=== PATIENT | male | born 1940 | race American Indian/Alaskan Native ===

== ENCOUNTER 2020-10-20 19:08 | Emergency (ER) | payer MEDICARE ==
[2020-10-20] MEDS ORDERED: ONDANSETRON 4 MG/2 ML INJ IV PRN (19:20)
[2020-10-20] MEDS ORDERED: ACETAMINOPHEN 325 MG TAB PO PRN (19:20)
[2020-10-20] MEDS ORDERED: oxyCODONE /ACETAMINOPHEN 5-325MG TAB PO PRN (19:20)
[2020-10-20] MEDS ORDERED: SODIUM CHLORIDE 0.9% 1000 ML 1,000 ML IV SCH (19:30)
[2020-10-20] MEDS ORDERED: LACTATED RINGERS 1000 ML IV SOLN IV ONE (19:30)
[2020-10-20] MEDS ORDERED: SODIUM CHLORIDE 0.9% 1000 ML IV SOLN IV ONE (19:32)
[2020-10-20] MEDS ORDERED: ENOXAPARIN 30 MG/0.3 ML INJ SUB-Q SCH (20:00)
[2020-10-20 20:14] LABS: Basophils % (Auto) 0.1 % (0.0-1.8); Hematocrit 34.7 % (35.5-45.6); Hemoglobin 11.7 gm/dl (11.8-15.2); Lymphocytes # (Auto) 0.4 K/mm3 (1.2-5.4); Lymphocytes % (Auto) 5.8 % (13.4-35.0); Mean Corpuscular HGB Conc 34 % (32-34); Mean Corpuscular Volume 83 fl (84-94); Monocytes # (Auto) 0.6 K/mm3 (0.0-0.8); Monocytes % (Auto) 8.4 % (0.0-7.3); Platelet Count 377 K/mm3 (140-440); Red Cell Distribution Width 16.5 % (13.2-15.2)
--- NOTE | 2020-10-20 20:14 | XRay Report ---
CHEST 1 VIEW 10/20/2020 7:32 PM INDICATION / CLINICAL INFORMATION: sob, hypoxia. COMPARISON: None available. FINDINGS: SUPPORT DEVICES: None. HEART / MEDIASTINUM: No significant abnormality. LUNGS / PLEURA: There is a [id number] right apical pneumothorax. There are patchy pulmonary op acities in the right mid and lower lung and left mid and lower lung. ADDITIONAL FINDINGS: No significant additional findings. IMPRESSION: 1. Small to moderate right pneumothorax. 2. Patchy bibasilar pulmonary opacities. Findings discussed with Dr. Del Valle at 7:10 PM on 10/20/2020. Signer Name: Juma Woodall MD Signed: 10/20/2020 8:10 PM Workstation Name: [id number]
--- NOTE | 2020-10-20 20:22 | Emergency Department Report ---
ED Shortness of Breath [facility] - General Chief Complaint: Dyspnea/Respdistress Stated Complaint: JOSE Time Seen by Provider: 10/20/20 19:27 Source: patient Mode of arrival: Wheelchair Limitations: Physical Limitation - History of Present Illness Initial Comments: 79-year-old male presents to the hospital with shortness of breath. Patient is [place] and very difficult to understand. He apparently was sent for direct admission by Dr. Landrum and was accepted by Dr. Minaya for admission. After the ED presentation he was found to be hypoxic and hypotensive therefore he came through the ED for evaluation. History of present illness obtained from Dr. Landrum. Patient lives here but apparently goes home periodically to [place]. He actually landed here from [facility] at this morning. While hematuria patient developed shortness of breath and had a CAT scan showing a mass. He had a biopsy showing pulmonary fibrosis. Patient developed progressive shortness of breath and pleural effusion during evaluation as well. Patient had a negative Covid test while in [place]. Patient has been progressively losing weight and had a chest x-ray in the doctor's office and was noted to be hypoxic and hypotensive and therefore sent to the hospital for admission. Initial triage vital signs showed BP of 82/52, heart rate of 111, saturation of 75% on room air, and respiratory rate of 20. - Related Data Allergies Allergy/AdvReac Type Severity Reaction Status Date / Time No Known Allergies Allergy Unverified 03/24/14 11:50 ED Review of Systems ROS: Stated complaint: JOSE Other details as noted in HPI ED Past Medical Hx - Past Medical History Previous Medical History?: Yes Hx Hypertension: Yes Additional medical history: "Lung dx" - Surgical History Past Surgical History?: Yes Additional Surgical History: Lung biopsy - Social History Smoking Status: Never Smoker Substance Use Type: None ED Physical Exam - General Limitations: Physical Limitation - Other Other exam information: General: No acute distress Head: Atraumatic Eyes: normal appearance ENT: Moist mucous membranes Neck: Normal appearance, no midline tenderness Chest: Diminished right-sided breath sounds, no tachypnea accessory muscle use CV: Regular rate and rhythm Abdomen: Soft, normal bowel sounds, nontender, nondistended, no rebound or guarding Back: Normal inspection Extremity: Normal inspection, full range of motion Neuro: Alert O x 3, no facial asymmetry, speech clear, no gross motor sensory deficit Psych: Appropriate behavior Skin: No rash ED Course Vital Signs 10/20/20 10/20/20 10/20/20 19:19 20:29 20:30 Temperature 97.5 F L Pulse Rate 111 H 104 H 105 H Respiratory 20 19 18 Rate Blood Pressure 82/52 147/70 O2 Sat by Pulse 75 L 100 100 Oximetry 10/20/20 10/20/20 10/20/20 20:45 21:00 21:15 Temperature Pulse Rate 103 H 104 H 102 H Respiratory 25 H 16 16 Rate Blood Pressure 143/71 143/71 126/67 O2 Sat by Pulse 100 100 100 Oximetry - Reevaluation(s) Reevaluation #1: 10/20/20 Patient placed on 3 L and satting 100% without signs of tachypnea or respiratory distress 10/21/20 00:30 I attempted to call Daughter Kandice's number to provide an update regarding diagnosis and plan for transfer but no answer. - Consultations Consultation #1: 10/20/20 23:17 Dr Carver provided an update regarding CT findings and need for pulmonology co nsult and possible transfer. He states that he has discussed case with Dr. Shah and therefore I will consult Dr. Shah regarding appropriate disposition i.e. admission here or need for transfer for treatment of loculated hydropneumothorax. 10/20/20 23:[address] Shah who confirms that patient will need to be at a facility to have CT surgery to manage his hydropneumothorax. 10/20/20 23:58 [facility] initially called and the were low on beds so We called [facility], [facility], and [facility] and all three hospitals were at capacity case d/w [facility] transfer service, awaiting call back from ct surgeon. 10/21/20 00:26 I received callback from cardiothoracic surgery Dr. Donahue. He is accepted p atient for transfer to [facility] ED Medical Decision Making - Lab Data Result diagrams: 10/20/20 19:42 10/20/20 19:42 Lab Results 10/20/20 10/20/20 10/20/20 Range/Units 19:42 19:42 19:42 WBC 7.3 (4.5-11.0) K/mm3 RBC 4.20 (3.65-5.03) M/mm3 Hgb 11.7 L (11.8-15.2) gm/dl Hct 34.7 L (35.5-45.6) % MCV 83 L (84-94) fl MCH 28 (28-32) pg MCHC 34 (32-34) % RDW 16.5 H (13.2-15.2) % Plt Count 377 (140-440) K/mm3 Lymph % (Auto) 5.8 L (13.4-35.0) % [place] % (Auto) 8.4 H (0.0-7.3) % Eos % (Auto) 0.0 (0.0-4.3) % Baso % (Auto) 0.1 (0.0-1.8) % Lymph # (Auto) 0.4 L (1.2-5.4) K/mm3 [place] # (Auto) 0.6 (0.0-0.8) K/mm3 Eos # (Auto) 0.0 (0.0-0.4) K/mm3 Baso # (Auto) 0.0 (0.0-0.1) K/mm3 Seg Neutrophils % 85.7 H (40.0-70.0) % Seg Neutrophils # 6.3 (1.8-7.7) K/mm3 PT (12.2-14.9) Sec. INR (0.87-1.13) APTT (24.2-36.6) Sec. D-Dimer (0-234) ng/mlDDU Sodium 128 L (137-145) mmol/L Potassium 4.5 (3.6-5.0) mmol/L Chloride 83.7 L (98-107) mmol/L Carbon Dioxide 29 (22-30) mmol/L Anion Gap 20 mmol/L BUN 31 H (9-20) mg/dL Creatinine 1.7 H (0.8-1.3) mg/dL Estimated GFR 47 ml/min BUN/Creatinine Ratio 18 % Glucose 130 H (75-100) mg/dL Lactic Acid 2.10 H* (0.7-2.0) mmol/L Calcium 10.1 (8.4-10.2) mg/dL Ferritin (30.0-300.0) ng/mL Total Bilirubin 0.50 (0.1-1.2) mg/dL AST 68 H (5-40) units/L ALT 47 (7-56) units/L Alkaline Phosphatase 102 (35-129) units/L Lactate Dehydrogenase (91-180) units/L C-Reactive Protein (0.00-1.30) mg/dL Total Protein 7.8 (6.3-8.2) g/dL Albumin 3.6 L (3.9-5) g/dL Albumin/Globulin Ratio 0.9 % 10/20/20 10/20/20 10/20/20 Range/Units 19:42 19:42 19:42 WBC (4.5-11.0) K/mm3 RBC (3.65-5.03) M/mm3 Hgb (11.8-15.2) gm/dl Hct (35.5-45.6) % MCV (84-94) fl MCH (28-32) pg MCHC (32-34) % RDW (13.2-15.2) % Plt Count (140-440) K/mm3 Lymph % (Auto) (13.4-35.0) % [place] % (Auto) (0.0-7.3) % Eos % (Auto) (0.0-4.3) % Baso % (Auto) (0.0-1.8) % Lymph # (Auto) (1.2-5.4) K/mm3 [place] # (Auto) (0.0-0.8) K/mm3 Eos # (Auto) (0.0-0.4) K/mm3 Baso # (Auto) (0.0-0.1) K/mm3 Seg Neutrophils % (40.0-70.0) % Seg Neutrophils # (1.8-7.7) K/mm3 PT (12.2-14.9) Sec. INR (0.87-1.13) APTT (24.2-36.6) Sec. D-Dimer 8356.23 H (0-234) ng/mlDDU Sodium (137-145) mmol/L Potassium (3.6-5.0) mmol/L Chloride (98-107) mmol/L Carbon Dioxide (22-30) mmol/L Anion Gap mmol/L BUN (9-20) mg/dL Creatinine (0.8-1.3) mg/dL Estimated GFR ml/min BUN/Creatinine Ratio % Glucose 127 H (75-100) mg/dL Lactic Acid (0.7-2.0) mmol/L Calcium (8.4-10.2) mg/dL Ferritin 3799.0 H (30.0-300.0) ng/mL Total Bilirubin (0.1-1.2) mg/dL AST (5-40) units/L ALT (7-56) units/L Alkaline Phosphatase (35-129) units/L Lactate Dehydrogenase 359 H (91-180) units/L C-Reactive Protein 4.20 H (0.00-1.30) mg/dL Total Protein (6.3-8.2) g/dL Albumin (3.9-5) g/dL Albumin/Globulin Ratio % 10/20/20 10/20/20 Range/Units 19:42 22:31 WBC (4.5-11.0) K/mm3 RBC (3.65-5.03) M/mm3 Hgb (11.8-15.2) gm/dl Hct (35.5-45.6) % MCV (84-94) fl MCH (28-32) pg MCHC (32-34) % RDW (13.2-15.2) % Plt Count (140-440) K/mm3 Lymph % (Auto) (13.4-35.0) % [place] % (Auto) (0.0-7.3) % Eos % (Auto) (0.0-4.3) % Baso % (Auto) (0.0-1.8) % Lymph # (Auto) (1.2-5.4) K/mm3 [place] # (Auto) (0.0-0.8) K/mm3 Eos # (Auto) (0.0-0.4) K/mm3 Baso # (Auto) (0.0-0.1) K/mm3 Seg Neutrophils % (40.0-70.0) % Seg Neutrophils # (1.8-7.7) K/mm3 PT 13.2 (12.2-14.9) Sec. INR 1.01 (0.87-1.13) APTT 35.8 (24.2-36.6) Sec. D-Dimer (0-234) ng/mlDDU Sodium (137-145) mmol/L Potassium (3.6-5.0) mmol/L Chloride (98-107) mmol/L Carbon Dioxide (22-30) mmol/L Anion Gap mmol/L BUN (9-20) mg/dL Creatinine (0.8-1.3) mg/dL Estimated GFR ml/min BUN/Creatinine Ratio % Glucose (75-100) mg/dL Lactic Acid 1.40 (0.7-2.0) mmol/L Calcium (8.4-10.2) mg/dL Ferritin (30.0-300.0) ng/mL Total Bilirubin (0.1-1.2) mg/dL AST (5-40) units/L ALT (7-56) units/L Alkaline Phosphatase (35-129) units/L Lactate Dehydrogenase (91-180) units/L C-Reactive Protein (0.00-1.30) mg/dL Total Protein (6.3-8.2) g/dL Albumin (3.9-5) g/dL Albumin/Globulin Ratio % - EKG Data -: EKG Interpreted by Wi EKG shows normal: sinus rhythm Rate: normal - Radiology Data Radiology results: report reviewed CTA CHEST WITH CONTRAST INDICATION / CLINICAL INFORMATION: P.E. PROTOCOL! Elevated D-dimer, Pneumothorax, S/P biopsy. TECHNIQUE: Axial CT images were obtained through the chest after injection of 100 mL Omnipaque 350 IV contrast. 3 plane MIP and/or 3D reconstructions were produced. All CT scans at this location are performed using CT dose reduction for ALARA by means of automated exposure control. COMPARISON: No prior CT. Chest radiograph earlier on 10/20/20 FINDINGS: PULMONARY ARTERIES: Small to moderate segmental pulmonary emboli in the left lower lobe. THORACIC AORTA: Mild atherosclerotic calcification without acute abnormality. HEART: No significant abnormality. CORONARY ARTERY CALCIFICATION: Mild. MEDIASTINUM / HARRY: No significant abnormality. PLEURA: Moderate size loculated anterior right hydropneumothorax. Small left pleural effusion versus pleural thickening. LUNGS: Reticular pattern of interstitial lung disease. No honeycombing. ADDITIONAL FINDINGS: Bronchial wall thickening throughout the right lung especially involving the right upper lobe bronchus and bronchus intermedius. UPPER ABDOMEN: No acute findings. SKELETAL STRUCTURES: No significant osseous abnormality. IMPRESSION: 1. Small moderate segmental left lower lobe pulmonary emboli. 2. Moderate-sized loculated anterior right hydropneumothorax as seen on radiograph. 3. Right lung bronchial wall thickening. 4. Reticular pattern of interstitial lung disease without honeycombing. CHEST 1 VIEW 10/20/2020 7:32 PM INDICATION / CLINICAL INFORMATION: sob, hypoxia. COMPARISON: None available. FINDINGS: SUPPORT DEVICES: None. HEART / MEDIASTINUM: No significant abnormality. LUNGS / PLEURA: There is a [id number] right apical pneumothorax. There are patchy pulmonary opacities in the right mid and lower lung and left mid and lower lung. ADDITIONAL FINDINGS: No significant additional findings. IMPRESSION: 1. Small to moderate right pneumothorax. 2. Patchy bibasilar pulmonary opacities. - Medical Decision Making 79-year-old male presents here with hypoxia and shortness of breath after recent return from [facility] this a.m. Patient received pulmonology work-up while in [facility] and follow-up with his PMD here upon arrival to [place]. Patient was noted to have abnormal chest x-ray with hypoxia hypotension at the doctor's office therefore sent to the hospital with plan to direct admit. Patient was too unstable for direct admission and required ED stabilization and work-up. ED work-up revealed a loculated right-sided anterior hydropneumothorax and pulmonary emboli. Case discussed with Dr. Land[facility]. Case discussed with his consulting watcher lookout tower Dr. Teixeira/Dr. Shah and patient will require transfer to the hospital that has CT surgery. In the ED patient treated with normal saline, supplemental oxygen with adequate oxygenation at 3 L nasal cannula, vancomycin and cefepime for hospital-acquired pneumonia (after reviewing initial chest x-ray), and heparin drip initiated for pulmonary emboli as opposed to Lovenox in case patient requires surgical intervention Given patient is hypoxic a recent travel, Covid test was ordered as well as IV d examethasone until Covid test can be obtained. Patient also had blood cultures drawn as part of his septic work-up. Initial mild increased lactic acid improved with IV hydration and patient initial hypotension remained improved and stable after 30 mm KG bolus of normal saline Critical Care Time: Yes Critical care time in (mins) excluding proc time.: 40 Critical care attestation.: If time is entered above; I have spent that time in minutes in the direct care of this critically ill patient, excluding procedure time. ED Disposition Clinical Impression: Hypoxia, Hydropneumothorax, Pulmonary emboli, History of lung biopsy Disposition: DC/TX-70 ANOTHER TYPE [facility] Is pt being admited?: No Condition: Stable Time of Disposition: 00:32 (Dr. Donahue CT surgeon [facility])
[2020-10-20 20:34] LABS: Albumin 3.6 g/dL (3.9-5); Calcium 10.1 mg/dL (8.4-10.2)
[2020-10-20 20:36] LABS: C-Reactive Protein 4.2 mg/dL (0.00-1.30)
[2020-10-20] MEDS ORDERED: VANCOMYCIN 1,000 MG in SODIUM CHLORIDE 0.9% 500 ML 500 ML IV ONE (20:46)
[2020-10-20] MEDS ORDERED: CEFEPIME/NS 2 GM/100 ML 2 GM/100 ML BAG IV ONE (20:46)
[2020-10-20] MEDS ORDERED: VANCOMYCIN PHARMACY TO DOSE IV SCH (21:00)
[2020-10-20] MEDS ORDERED: dexAMETHasone 4 MG/ML VIAL IV ONE (21:02)
[2020-10-20] MEDS ORDERED: VANCOMYCIN/NS 1 GM/250 ML 1 GM/250 ML BAG IV ONE (22:00)
--- NOTE | 2020-10-20 23:01 | Cat Scan Report ---
CTA CHEST WITH CONTRAST INDICATION / CLINICAL INFORMATION: P.E. PROTOCOL! Elevated D-dimer, Pneumothorax, S/P biopsy. TECHNIQUE: Axial CT images were obtained through the chest after injection of 100 mL Omnipaque 350 IV contrast. 3 plane MIP and/or 3D reconstructions were produced. All CT scans at this location are per formed using CT dose reduction for ALARA by means of automated exposure control. COMPARISON: No prior CT. Chest radiograph earlier on 10/20/20 FINDINGS: PULMONARY ARTERIES: Small to moderate segmental pulmonary emboli in the left lower lobe. THORACIC AORTA: Mild atherosclerotic calcification without acute abnormality. HEART: No significant abnormality. CORONARY ARTERY CALCIFICATION: Mild. MEDIASTINUM / HARRY: No significant abnormality. PLEURA: Moderate size loculated anterior right hydropneumothorax. Small left pleural effusion versus pleural thickening. LUNGS: Reticular pattern of interstitial lung disease. No honeycombing. ADDITIONAL FINDINGS: Bronchial wall thickening throughout the right lung especially involving the rig ht upper lobe bronchus and bronchus intermedius. UPPER ABDOMEN: No acute findings. SKELETAL STRUCTURES: No significant osseous abnormality. IMPRESSION: 1. Small moderate segmental left lower lobe pulmonary emboli. 2. Moderate-sized loculated anterior right hydropneumothorax as seen on radiograph. 3. Right lung bronchial wall thickening. 4. Reticular pattern of interstitial lung disease without honeycombing. CRITICAL RESULT: Time of Discovery (OUTSIDE SALESMAN/CDT): 9:50 PM Time of Communication (OUTSIDE SALESMAN/CDT): 9:52 PM Licensed Practitioner Receiving Report: Dr. Del Valle in the ED Read-Back Performed: Yes. Signer Name: Andreas Kay MD Signed: 10/20/2020 10:56 PM Workstation Name: [id number]
[2020-10-20] MEDS ORDERED: HEPARIN 10,000 UNITS/10 ML VIAL IV ONE (23:32)
[2020-10-20] MEDS ORDERED: HEPARIN/ 0.45% NACL DRIP 25,000 UNIT/500 ML BAG IV SCH (23:45)
[2020-10-21 00:02] LABS: INR 1.01 (0.87-1.13); Partial Thromboplastin Time 35.8 Sec. (24.2-36.6)
[2020-10-21 00:56] LABS: Bilirubin,Urine NEG (Negative); Blood,Urine SM (Negative); Color,Urine Yellow (Yellow); Hyaline Casts,Urine 8 /LPF; Mucus,Urine FEW /HPF; Urobilinogen,Urine < 2.0 mg/dL (<2.0)
[2020-10-21 06:07] VITALS: BP 157/86
== END 2020-10-21 08:29 | disposition other institution (70) ==
LOC: ED 19:08
DX: I26.99 Other pulmonary embolism without acute cor pulmonale (principal); J94.8 Other specified pleural conditions; R09.02 Hypoxemia; I10 Essential (primary) hypertension; Z98.890 Other specified postprocedural states
CPT/HCPCS: 36415; 71045; 71275; 80053; 81001; 82140; 82728; 82947; 83615; 84145; 85025; 85379; 85520; 85610; 85730; 86140; 87040; 93005; 96361; 96365; 96366; 96367; 96375; 96376; 99291; J0692; J1100; J1644; J3370; J7030; Q9967